=== PATIENT | female | born 1935 | race Caucasian/White ===

== ENCOUNTER 2017-03-17 11:56 | Emergency (ER) | payer MEDICARE, OTHER ==
[~2017-03-17] VITALS: Ht 165.1 cm; Wt 78.4 kg
[2017-03-17 11:56] VITALS: BP 121/59; PULSE 64; RESP 20; O2SAT 95
[2017-03-17 12:23] VITALS: BP 117/59; PULSE 61; RESP 20; O2SAT 96
[2017-03-17 12:25] LABS: BASOPHILS % (AUTO) 0.2 % (0-3); EOSINOPHILS % (AUTO) 0.9 % (0-5); MONOCYTES % (AUTO) 6.4 % (4-12); Mean Corpuscular Hemoglobin 32.4 pg (27.0-35.0); Mean Corpuscular Volume 101.9 fL (81-100); Platelet Count 202 bil/L (150-400)
--- NOTE | 2017-03-17 12:40 | ED.REPORT ---
HPI-Syncope Date of Service Mar 17, 2017 ED Provider: Nicholas Vargas MD A demented 81 year old female with h/o Alzheimer's disease and dementia presents to the ED via EMS due to syncope that occurred earlier today while patient was in the shower. She reports that she started feeling unwell while using the bathroom earlier today. Associated chest pain and back pain but she denies any abdominal pain, or pain in her upper extremities. When asked where she is she responds "she does not really know where she is". She reports an episode of syncope in the past. History intake is difficult due to patient confusion. At recheck, family is present to provide history. Per daughter, narrow fabric loom fixer reported that the patient came out of the shower, started complaining about nausea and then lost consciousness. Family reports similar syncope in past, and reports recent SOB with wheezing, loss of motivation, and loss of energy. No recent medication change. Nursing Notes Stated Complaint: SYNCOPE Chief Complaint: General Complaint Nursing Notes Reviewed: Yes ([employer], [employer] not reconciled) Allergies: Coded Allergies: No Known Allergies (Unverified , 03/17/17) General Time Seen by Provider: 12:26 Chief Complaint Lost consciousness Hx Obtained From: Patient, EMS Arrived By: Ambulance Onset Occurred: 1 - 4 hours ago (earlier today) Symptom Duration: Duration unknown Progression Since Onset: Gradually improving Location: : Back: Chest Severity: Current: Mild Severity: Maximum: Mild Recent Healthcare: No recent doctor visit Similar Sx Previous: No Past Medical History Past Medical History Notes: Dr. Jin is PCP, visit approx 1 month ago Past Medical History Alzheimer's disease dementia History rheumatoid arthritis Hypothyroidism History of multiple sclerosis Reports one episode of syncope Family denies Hx valvular disease Denies: Diabetes mellitus, Hyperlipidemia Past Surgical History History of ruptured appendix Hysterectomy [place] implants Hemorrhoidectomy Tonsillectomy Review of Systems Unable to Obtain ROS Mental status Physical Exam Initial Vital Signs Vital Signs (First) Date Time Temp Pulse Resp B/P Pulse Ox O2 Delivery O2 Flow Rate FiO2 03/17/17 11:56 36.7 64 20 121/59 95 Room Air Initial VS: Reviewed, Vital signs normal, Vital signs abnormal (nurses note reports some sort of unknown low blood pressure for EMS, details not in record) General/Constitutional: Awake Alertness: Positive: Confused Patient is confused and does not give clear answers to questions. She reports pain but cannot identify where it is. She mentions chest pain but can not describe or articulate. Only note on patient green sheet is that she is normally confused. Cardiovascular: Heart rate NL, Regular rhythm, Heart sounds NL, No gallop, No murmurs, No rubs Lower Extremity / Pelvis / MS: Atraumatic Neurologic: Speech NL No focal deficits. Head / Eyes: Atraumatic, Normocephalic, PERRL, EOMI ENT: Atraumatic, Mucous membranes moist Abdomen: Atraumatic, No guarding, No rebound Skin: Atraumatic, Color NL, Warm, Dry Interpretation & Diagnostics Lab Results Interpretation Result Diagram: 03/17/17 1210 03/17/17 1210 Test 03/17/17 12:10 03/17/17 12:22 03/17/17 15:19 White Blood Count 8.9th/mm3 (3.8-10.1) Red Blood Count 3.70mil/mm3 (3.90-5.20) Hemoglobin 12.0g/dL (12.0-15.6) Hematocrit 37.7% (35.0-46.0) Mean Corpuscular Volume 101.9fL (81-100) Mean Corpuscular Hemoglobin 32.4pg (27.0-35.0) Mean Corpuscular Hemoglobin Concent 31.8% (32.0-37.0) Red Cell Distribution Width 13.4% (12.3-15.4) Platelet Count 202bil/L (150-400) Neutrophils (%) (Auto) 81.0% (40-74) Lymphocytes (%) (Auto) 11.3% (14-46) Monocytes (%) (Auto) 6.4% (4-12) Eosinophils (%) (Auto) 0.9% (0-5) Basophils (%) (Auto) 0.2% (0-3) Sodium Level 139mEq/L (134-144) Potassium Level 3.6mEq/L (3.5-5.2) Chloride Level 102mEq/L (97-108) Carbon Dioxide Level 20mmol/L (18-29) Blood Urea Nitrogen 18mg/dL (8-27) Creatinine 1.30mg/dL (0.57-1.00) Estimat Glomerular Filtration Rate 56mL/min (>59) Glucose Level 158mg/dL (60-99) Calcium Level 9.0mg/dL (8.5-10.1) Magnesium Level 1.9mg/dL (1.6-2.6) Total Bilirubin 0.5mg/dL (0.0-1.2) Aspartate Amino Transf (AST/SGOT) 19U/L (0-50) Alanine Aminotransferase (ALT/SGPT) 12U/L (0-32) Alkaline Phosphatase 78U/L (25-165) Total Protein 6.3g/dL (6.4-8.4) Albumin 3.6g/dL (3.4-5.0) Urine Color Yellow (YELLOW) Urine Appearance Clear (CLEAR,HAZY) Urine pH 6.5 (5.0-8.0) Urine Specific [place] 1.025 (1.003-1.035) Urine Protein 100mg/dL (NEG,TRACE) Urine Glucose (UA) Negativemg/dL (NEGATIVE) Urine Ketones Tracemg/dL (NEGATIVE) Urine Occult Blood Negative (NEGATIVE) Urine Nitrite Negative (NEGATIVE) Urine Bilirubin Negative (NEGATIVE) Urine Urobilinogen Normalmg/dL (NORMAL) Urine Leukocyte Esterase Negative (NEGATIVE) Urine RBC 0-2/hpf (0-2) Urine WBC 6-10/hpf (0-5) Urine Epithelial Cells Few/hpf (NONE-MOD) Urine Crystals None seen (NONE SEEN) Urine Bacteria Few/hpf (NONE-FEW) Urine Hyaline Casts 5/20/lpf (NONE) Urine Granular Casts None seen (NONE SEEN) Urine Waxy Casts None seen (NONE SEEN) Urine Red Blood Cell Casts None seen (NONE SEEN) Urine White Blood Cell Casts None seen (NONE SEEN) Urine Mucus Present (None Seen) Urine Trichomonas None seen (NONE SEEN) Urine Yeast None (NONE SEEN) Urinalysis Comment None Urine Culture Reflexed Indicated ECG Interpretation ECG Interpretation: Normal Sinus Rhythm. Rate is 61. Q wave inferior, suggests prior inferior infarct. LVH, repolarization abnormlaity probably from LVH, most pronounced 1 and AVL. No prior EKG available for comparison. Time: 12:56 Interpreted by: ED physician X-Ray Chest Interpretation Chest Xray Interpretation: IMPRESSION: No acute process. Dictated by: Bill Davidson M.D. on 03/17/2017 at 12:43 Approved by: Bill Davidson M.D. on 03/17/2017 at 12:44 Interpretation / Wet Read by: Interpret - Radiologist Re-Eval/Medical Decision Med Decision/Clinical Course This is an 81-year-old female severe dementia sent in provide any history has witnessed syncopal episode by a narrow fabric loom fixer after coming out of the shower. Do not have any additional information. Patient cannot provide any history she gives a general complaint that she hurts somewhere, but cannot actually tell me where. Appears well, is in no visible distress. I do not appreciate any murmurs. He has LVH with nonspecific changes and repolarization abnormalities and EKG and I do not have a prior EKG for comparison. Apparently he was concerned possibly about the possibilities of ST segment elevation that she is brought here. I do not appreciate evidence of an ST segment elevation OR in her evaluation both on her EKG, nor she have presentation clinically at this time. There are no PE risk factors. She appears well. Simply demented and confused. Family reports she is at baseline. Blood work was normal, but a second troponin is being obtained. Given the LVH, syncope, uncertain etiology and echocardiograms that obtained, but no significant pathology identified. At this stage given her status I am not finding real indication that hospitalization is required. She has had no medication changes, no findings of bleeding or volume depletion, no foreign clinical findings of infection. She is remained well in the department. she had no dysrhythmic events. We are content with this, patient is content with this. The plan is discharge of the second troponin is normal Source of Hx: Old records, EMS Re-Evaluation/Progress #1: Time of Eval: 13:01 Re-Evaluation/Progress Note: Interviewed patient's family who are now in the ED. Re-Evaluation/Progress #2: Time of Eval: 14:40 Patient Status: Condition improved Re-Evaluation/Progress Note: Rechecked patient and explained test results to patient and patient's family. Differential Diagnosis: Negative: Abdominal aortic aneurysm, Acute coronary syndrome, Anemia, Cerebrovascular accident, Dehydration, Electrolyte disorder, Head trauma, Illicit drug use, Intracranial bleed, Malingering, Pericarditis, Pneumothorax, Prolonged QT syndrome Counseled Regarding: Diagnosis, Lab results, Need for follow-up, When/why to return to ED Discharge & Departure Impression: Primary Impression: Syncope Syncope type: unspecified Qualified Code: R55 - Syncope and collapse Disposition: Home Discharge Condition All VS Reviewed: Yes Condition: Improved Referrals: Samson Mayberry MD (Family) Scribe Attestation Portions of this note were transcribed by Misael Martin. I, Dr. Vargas personally performed the history, physical exam and medical decision-making; I reviewed and confirmed the accuracy of the information in the transcribed note. Signed by: Mauricio Ovalle, 03/17/2017, 1535. copies to: Samson Mayberry MD, Matthew F MD Mar 17, 2017 12:40 Misael Martin Mar 17, 2017 12:51
--- NOTE | 2017-03-17 12:45 | DRSVH ---
PROCEDURE: X-RAY CHEST ONE VIEW, PORTABLE ([id number]) INDICATIONS: syncopy TECHNIQUE: One view of the chest was acquired. COMPARISON: None. FINDINGS: Surgical changes and devices: None. Lungs and pleura: No pleural effusions or pneumothorax. Lungs are clear. Mediastinum: Mediastinal contours appear normal. Heart size is normal. Bones and chest wall: No suspicious bony lesions. Overlying soft tissues appear unremarkable. IMPRESSION: No acute process. Dictated by: Bill Davidson M.D. on 03/17/2017 at 12:43 Approved by: Bill Davidson M.D. on 03/17/2017 at 12:44
[2017-03-17 12:48] LABS: APPEARANCE,URINE CLEAR (CLEAR,HAZY); COLOR,URINE YELLOW (YELLOW); PH,URINE 6.5 (5.0-8.0)
[2017-03-17 12:49] LABS: OCCULT BLOOD,URINE NEGATIVE (NEGATIVE); UROBILINOGEN,URINE NORMAL (NORMAL)
[2017-03-17 13:22] LABS: TROPONIN T < 0.010 ug/L (0.0-0.011)
[2017-03-17 13:31] LABS: Magnesium 1.9 mg/dL (1.6-2.6)
--- NOTE | 2017-03-17 15:48 | DRSVH ---
[facility] [address] [place] [address] Echocardiogram Report Name: WALKER MARTINEZ Saul e: 03/17/2017Height: 65 in Hospital Exam Location: [facility] Weight: 173 lb Gender: Female BSA: 1.9 m2 : 1935 Age: 81 yrs BP: 117/59 mmHg Reason For Study: CHEST PAIN, SYNCOPE, ABNL EKG Ordering Physician: HOSPITALIST [facility] Performed By: Bruce Zelaya Referring Physician: Dr. Samson Mayberry Interpretation Summary The left ventricle is normal in size, wall thickness, and systolic function without any focal wall motion abnormalities. The ejection fraction is estimated to be 60-65%. Assessment of diastolic parameters indicates a relaxation abnormality of the left ventricle, consistent with normal filling pressures. The right ventricle is normal in size and function. The right ventricular systolic pressure is estimated at 22 mmHg assuming a right atrial pressure of 3 mm Hg. Both atria are normal in size. There is mild mitral regurgitation. There is mild aortic regurgitation. There is no other significant valvular heart disease. The ascending aorta is mildly enlarged. Procedure: A two-dimensional transthoracic echocardiogram with color flow and Doppler was performed. The study quality was technically good. There is no prior echocardiogram noted for this patient. The patient was in normal sinus rhythm during the exam. Left Ventricle: The left ventricle is normal in size, wall thickness, and systolic function without any focal wall motion abnormalities. The ejection fraction is estimated to be 60-65%. Assessment of diastolic parameters indicates a relaxation abnormality of the left ventricle, consistent with normal filling pressures. Right Ventricle: The right ventricle is normal in size and function. Atria: Both atria are normal in size. The interatrial septum is intact with no evidence for an atrial septal defect. Mitral Valve: The mitral valve is normal in structure and function. There is mild mitral regurgitation. Aortic Valve: The aortic valve is normal in structure and function. The aortic valve is trileaflet. The aortic valve opens well. There is mild aortic regurgitation. Tricuspid Valve: The tricuspid valve is normal in structure and function. There is mild tricuspid regurgitation. The right ventricular systolic pressure is estimated at 22 mmHg assuming a right atrial pressure of 3 mm Hg. Pulmonic Valve: The pulmonic valve is normal in structure and function. There is trace pulmonic regurgitation. There is no other significant valvular heart disease. Great Vessels: The aortic root is normal size. The ascending aorta is mildly enlarged. The pulmonary artery is normal size. The IVC is of normal diameter and collapses greater than 50% with a sniff. This suggests a low right atrial pressure of 3 mm Hg. Pericardium/ Pleura There is no pericardial effusion. There is no pleural effusion. MMode/2D Measurements & Calculations LVIDd: 5.1 cm LA dimension: 3.4 cm RA long axis Ao root diam LVIDs: 3.1 cm FS: 38.8 % LA A2 area: 15.5 cm RA area Aortic Jxn EPSS: 0.51 cm LA A4 area: 15.4 cm IVSd: 0.78 cm LA length (vol): 4.7 cm : 13.1 cm asc Aorta LVPWd: 0.88 cm LA vol: 43.1 ml RA vol: 34.7 mlDiam: 3.8 cm LA vol index RA : 18.7 mm2 IVC diam: 0.93 cm LV luong. diameter/BSA LV sys. diameter/BSA (cm/m^2): 2.7 (cm/m^2): 1.7 Doppler Measurements & Calculations Ao V2 max MV E max matt MV E/A: 0.83 TR max matt : 122.2 cm/sec : 49.8 cm/sec Med Peak E' Matt : 219.8 cm/sec Ao max P.0 mmHgMV A max matt TR max P.3 mmHg Ao mean PG : 60.2 cm/sec E/E' med: 13.8 PA V2 max: 74.9 cm/sec Pulm A Revs Dur PA mean P.4 mmHg AI P1/2t PA Accel Time: 0.06 sec : 886.9 msec MV A dur AI dec slope : 0.14 sec : 132.2 cm/s2c MV dec time Ao V2 mean PA V2 mean Pulm A Revs Dur - MV A : 0.26 sec : 82.8 cm/sec : 57.7 cm/sec Dur: -0.01 msec Ao V2 VTI PA pr(Accel) : 29.6 cm : 49.9 mmHg Reading Physician:PM
[2017-03-17 16:34] VITALS: BP 152/76; PULSE 81; RESP 20; O2SAT 96
== END 2017-03-17 16:35 | disposition home or self-care (01) ==
LOC: SED 11:56
DX: R55 Syncope and collapse (principal); E03.9 Hypothyroidism, unspecified; G30.8 Other Alzheimer's disease; F02.80 Dementia in other diseases classified elsewhere, unspecified severity, without behavioral disturbance, psychotic disturbance, mood disturbance, and anxiety
CPT/HCPCS: 36415; 71010; 80053; 81000; 83735; 84484; 85025; 87077; 87086; 87088; 87186; 93005; 96360; 99285; C8929